=== PATIENT | female | born 1995 | race American Indian/Alaskan Native ===

== ENCOUNTER 2016-09-24 12:16 | Emergency (ER) | payer OTHER ==
[2016-09-24] MEDS ORDERED: TYLENOL PO ONE (23:44)
--- NOTE | 2016-09-25 00:17 | Emergency Department Report ---
HPI - General Chief Complaint: Vaginal Bleeding Time Seen by Provider: 09/24/16 23:33 - HPI HPI: 21-year-old Afro-[place] female presents emergency Department with a one-week history of some intermittent vaginal bleeding and lower abdominal/pelvic cramping. The patient says she is about 6 weeks . Her last menstrual cycle was the reported 26. She went to a women's health clinic a week ago and was told that she is about 6 weeks based on her last menstrual cycle and says she is supposed to go back in 1 week for an ultrasound. She does not have an [employer] SIGN MECHANIC. She was given a prescription for vitamins but has not yet started taking them. She has not taken anything for symptoms prior to presentation. She denies any vaginal discharge, dysuria, back pain, fever, vomiting. No recent travel or sick contacts at home. ED Past Medical Hx - Past Medical History Previous Medical History?: No - Surgical History Past Surgical History?: No - Social History Smoking Status: Current Every Day Smoker - Medications Home Medications: Home Medications Medication Instructions Recorded Confirmed Last Taken Type Vit No.130/Iron/FA 1 each PO QDAY #30 tablet 09/25/16 Unknown Rx [ Tablet] ED Review of Systems ROS: Stated complaint: CRAMPING/BLEEDING, 6WKS Other details as noted in HPI Comment: All other systems reviewed and negative Constitutional: denies: chills, fever Eyes: denies: eye pain, eye discharge, vision change ENT: denies: ear pain, throat pain Respiratory: denies: cough, shortness of breath, wheezing Cardiovascular: denies: chest pain, palpitations Gastrointestinal: abdominal pain. denies: vomiting Genitourinary: other (vag bleeding). denies: urgency, dysuria, discharge Musculoskeletal: denies: back pain, joint swelling, arthralgia Skin: denies: rash, lesions Neurological: denies: headache, weakness, paresthesias Physical Exam - Physical Exam Vital Signs: Vital Signs 09/24/16 09/24/16 12:43 22:19 Temperature 99.2 F 98.6 F Pulse Rate 87 74 Respiratory 20 18 Rate Blood Pressure 132/64 122/88 O2 Sat by Pulse 100 100 Oximetry Physical Exam: GENERAL: The patient is well-developed well-nourished. HEENT: Normocephalic. Atraumatic. Extraocular motions are intact. Patient has moist mucous membranes. Pupils equal reactive to light bilaterally. NECK: Supple. Trachea is midline. CHEST/LUNGS: Clear to auscultation. There is no respiratory distress noted. HEART/CARDIOVASCULAR: Regular. There is no tachycardia. There is no gallop rub or murmur. ABDOMEN: Abdomen is soft. Mild tenderness to palpation to the lower quadrants of the abdomen. No guarding rebound tenderness. Patient has normal bowel sounds. There is no abdominal distention. SKIN: Skin is warm and dry. NEURO: The patient is awake, alert, and oriented. The patient is cooperative. The patient has no focal neurologic deficits. The patient has normal speech. MUSCULOSKELETAL: There is no tenderness or deformity. There is no limitation range of motion. There is no evidence of acute injury. ED Course Vital Signs 09/24/16 09/24/16 12:43 22:19 Temperature 99.2 F 98.6 F Pulse Rate 87 74 Respiratory 20 18 Rate Blood Pressure 132/64 122/88 O2 Sat by Pulse 100 100 Oximetry - Consultations Consultation #1: I spoke with the NE[employer] SIGN MECHANIC on-call, Dr. Rodriguez, regarding the patient's presentation and ultrasound findings that show the possibility of ectopic . The ultrasound mostly does not confirm an injury in and does not completely exclude an ectopic. Dr. Rodriguez is aware of the ultrasound , labs, physical exam and suggests that the patient follow up in her office this afternoon, today, at 1:30 PM in the [facility]. 09/25/16 02:29 ED Medical Decision Making - Lab Data Result diagrams: 09/25/16 00:09 09/25/16 00:09 - Radiology Data Radiology results: report reviewed Transvaginal/ ultrasound shows a possible small gestational sac in the endometrial canal versus a pseudo-gestational sac. 4 mm correlates with an estimated gestational age of 5 weeks and 1 day. Nonspecific echogenic area adjacent to the right ovary. An intrauterine has not been confirmed an ectopic has not been excluded. - Medical Decision Making This is a 21-year-old female presents to the emergency department with a one- week history of some vaginal bleeding and lower abdominal/pelvic cramping or discomfort. Patient found out she was about one week ago with a positive urine test and last menstrual cycle estimation. Patient had labs today that show a leukocytosis of about 16,000 and a beta hCG of 4850. There is no urinary tract infection. Patient has a stable hemoglobin at 12. Physical exam the patient has some mild tenderness to palpation to the lower abdomen and/or pelvic but she does not have any guarding, rebound tenderness, peritoneal signs and she does not appear to have a toxic or rigid abdomen. Vital signs stable throughout her ED course. The patient's transvaginal/ ultrasound shows a possible small gestational sac or pseudo-gestational sac in the uterus that is about 4 mm and would correlate with a age of about 5 weeks. There is also a nonspecific echogenic finding to the right ovary. This basically says that an intrauterine cannot be confirmed and an ectopic cannot be excluded. It is still also possible that the patient is in the midst of a miscarriage. I spoke with the NEON SIGN MECHANIC on-call, Dr. Rodriguez, who is aware of the ultrasound findings and the multiple possibilities of this current . The patient has been set up to see Dr. Rodriguez's OB/ RIB STIFFENER AND HEEL DIPPER service today at her [place] office at 1:30 PM. I spoke in great detail with the patient regarding the multiple different possibilities of her current status including intrauterine , ectopic, and miscarriage. She understands the need to follow-up with the [facility] SIGN MECHANIC service today at 1:30 PM but also knows that she can return to the emergency department if she has any worsening of her symptoms or any acute distress and needs reevaluation. I wrote for the patient have vitamins as well. She understands that until the is confirmed or excluded that she should only take Tylenol for discomfort, every 4 hours as needed, using weight-based dosing. - Differential Diagnosis , threatened miscarrai, ectopic, spontaneous miscarriage, fibroids Critical Care Time: No Critical care attestation.: If time is entered above; I have spent that time in minutes in the direct care of this critically ill patient, excluding procedure time. ED Disposition Clinical Impression: Vaginal bleeding Qualifiers: Weeks of gestation: less than 8 weeks Qualified Code(s): Z3A.01 - Less than 8 weeks gestation of Abdominal pain Qualifiers: Abdominal location: lower abdomen, unspecified Qualified Code(s): R10.30 - Lower abdominal pain, unspecified Disposition: DISCHARGED TO HOME OR SELFCARE Is pt being admited?: No Condition: Stable Instructions: (ED), Threatened Miscarriage (ED), Ectopic ( ED) Additional Instructions: As we discussed in the emergency department this evening, you have signs of on your ultrasound and on your lab work. However at this time we are unable to completely confirm an intrauterine or completely rule out an ectopic or miscarriage. You need to follow-up with the [facility] SIGN MECHANIC service, the office of Dr. Rodriguez, today at 1:30 PM without fail. If your symptoms worsen or if you have any acute distress, return to the emergency department for further evaluation. Prescriptions: Vit No.130/Iron/FA [ Tablet] 1 each PO QDAY #30 tablet Referrals: CAMILO RODRIGUEZ MD [Staff Physician] - 09/25/16 1:30 pm Time of Disposition: 02:23
[2016-09-25 00:53] LABS: Basophils % (Auto) 0.5 % (0.0-1.8); Eosinophils % (Auto) 2.1 % (0.0-4.3); Hematocrit 37.8 % (30.3-42.9); Hemoglobin 12.3 gm/dl (10.1-14.3); Mean Corpuscular HGB Conc 33 % (30-34); Mean Corpuscular Hemoglobin 30 pg (28-32); Mean Corpuscular Volume 93 fl (79-97); Platelet Count 262 K/mm3 (140-440); Red Blood Count 4.05 M/mm3 (3.65-5.03); Red Cell Distribution Width 13.1 % (13.2-15.2); White Blood Count 15.9 K/mm3 (4.5-11.0)
[2016-09-25 00:57] LABS: Anion Gap 16 mmol/L; BUN/Creatinine Ratio 6.66; Blood Urea Nitrogen 4 mg/dL (7-17); Calcium 8.5 mg/dL (8.4-10.2); Carbon Dioxide 24 mmol/L (22-30); Glucose 84 mg/dL (65-100); Potassium 4.1 mmol/L (3.6-5.0); Sodium 139 mmol/L (137-145)
--- NOTE | 2016-09-25 01:53 | Ultrasound Report ---
FINAL REPORT EXAM: US OB \T\lt; = 14 WEEKS FETUS HISTORY: vag bleeding, preg TECHNIQUE: Real-time sonography was performed of the gravid uterus transabdominally and images are submitted for interpretation. PRIORS: None. FINDINGS: There is a small sac in the endometrial canal rounded shape and measuring 4 millimeters. pole is not identified. The endometrium is thickened at 2.3 cm. The left ovary appears normal measuring 2.3 x 1.5 x 1.9 cm. The right ovary appears enlarged and has not echogenic area along lateral margin the right ovary measures 2.8 x 2.3 x 1.9 cm. Echogenic area measures 3.0 x 1.7 cm. There is a small amount of free pelvic fluid. IMPRESSION: 1. Possible small gestational sac in the endometrial canal versus pseudo gestational sac. 4 millimeters correlates with a estimated gestational age of 5 weeks 1 day. 2. Nonspecific echogenic area adjacent to the right ovary. An intrauterine has not been confirmed and ectopic has not been excluded.
--- NOTE | 2016-09-25 02:08 | Ultrasound Report ---
FINAL REPORT EXAM: US OB TRANSVAGINAL HISTORY: vag bleeding, preg TECHNIQUE: Real-time sonography was performed of the pelvis endovaginally. Images are submitted for interpretation. PRIORS: None. FINDINGS: There is a small sac in the endometrial canal, rounded in shape and measuring 4 millimeters. A pole is not identified. The endometrium is thickened at 2.3 cm. The left ovary appears normal measuring 2.3 x 1.5 x 1.9 cm. The right ovary appears enlarged and has an echogenic area along lateral margin. The right ovary measures 2.8 x 2.3 x 1.9 cm. The echogenic area measures 3.0 x 1.7 cm. There is a small amount of free pelvic fluid. IMPRESSION: 1. Possible small gestational sac in the endometrial canal versus pseudo gestational sac. 4 millimeters correlates with an estimated gestational age of 5 weeks 1 day. 2. Nonspecific echogenic area adjacent to the right ovary. An intrauterine has not been confirmed and ectopic has not been excluded. I gave a verbal report by phone to Dr. Kaufman at 1:53 a.m. eastern daylight time.
[2016-09-25 02:09] LABS: Bacteria,Urine 1+ /HPF (Negative); Bilirubin,Urine NEG (Negative); Blood,Urine MOD (Negative); Ketones,Urine TR mg/dL (Negative); Leukocyte Esterase,Urine NEG (Negative); Mucus,Urine 3+ /HPF; Nitrite,Urine NEG (Negative); Protein,Urine <15 mg/dL mg/dL (Negative); Urobilinogen,Urine < 2.0 mg/dL (<2.0)
[2016-09-25 03:13] VITALS: BP 120/78
== END 2016-09-25 02:45 | disposition home or self-care (01) ==
LOC: ED 12:16
DX: O46.91 Antepartum hemorrhage, unspecified, first trimester (principal); R10.30 Lower abdominal pain, unspecified; Z3A.01 Less than 8 weeks gestation of pregnancy; F17.200 Nicotine dependence, unspecified, uncomplicated
CPT/HCPCS: 36415; 76801; 76817; 80048; 81001; 84702; 85025; 86900; 86901

== ENCOUNTER 2016-09-25 09:35 | Inpatient (IN) | payer OTHER ==
[2016-09-25 11:11] LABS: Basophils % (Auto) 0.7 % (0.0-1.8); Eosinophils % (Auto) 2.3 % (0.0-4.3); Hematocrit 37.3 % (30.3-42.9); Hemoglobin 12.2 gm/dl (10.1-14.3); Mean Corpuscular HGB Conc 33 % (30-34); Mean Corpuscular Hemoglobin 30 pg (28-32); Mean Corpuscular Volume 93 fl (79-97); Platelet Count 268 K/mm3 (140-440); Red Blood Count 4.02 M/mm3 (3.65-5.03); Red Cell Distribution Width 13.1 % (13.2-15.2); White Blood Count 11.9 K/mm3 (4.5-11.0)
[2016-09-25 11:22] LABS: Anion Gap 16 mmol/L; BUN/Creatinine Ratio 5.71; Blood Urea Nitrogen 4 mg/dL (7-17); Calcium 8.7 mg/dL (8.4-10.2); Carbon Dioxide 22 mmol/L (22-30); Glucose 89 mg/dL (65-100); Potassium 3.8 mmol/L (3.6-5.0); Sodium 138 mmol/L (137-145)
[2016-09-25] MEDS ORDERED: TYLENOL PO ONE (12:08)
--- NOTE | 2016-09-25 12:13 | Emergency Department Report ---
Entered by QUIRINO ABBASI, acting as scribe for VINAYAK SHARP NP. Chief Complaint: Vaginal Bleeding Stated Complaint: ABD PAIN/VAG DISCHARGE Time Seen by Provider: 09/25/16 10:35 - HPI History of Present Illness: Patient, who is , presents the ED c/o vaginal bleeding just discharged at 03:30. During her visit, providers could not rule out an ectopic . She was advised to go see an CRUSHER SCREEN REPAIRER., but returned because vaginal bleeding worsened. - ROS Review of Systems: All systems are negative unless stated in HPI above. - Exam Vital Signs: Vital Signs 09/25/16 10:14 Temperature 98.5 F Pulse Rate 64 Blood Pressure 107/62 O2 Sat by Pulse 100 Oximetry Physical Exam: General: alert, Oriented x 3 Cardiovascular: moderately tachycardic MSE screening note: Focused history and physical exam performed. Due to findings the following was ordered: CAN NOT RO ECTOPIC LAST PM ILL APPEARING MD NOTIFIED. ED Medical Decision Making - Lab Data Result diagrams: 09/25/16 10:50 09/25/16 10:50 - Medical Decision Making Patient was seen by provider in the triage area. Labs have been ordered. ED Disposition for MSE Condition: Stable Referrals: PRIMARY CARE,MD [Primary Care Provider] - 3-5 Days This documentation as recorded by the scribe,QUIRINO ABBASI,accurately reflects the service I personally performed and the decisions made by HAYDE turner CATHLEEN A, NP.
[2016-09-25] MEDS ORDERED: MORPHINE IM ONE (12:47)
[2016-09-25] MEDS ORDERED: ZOFRAN ODT PO ONE (12:48)
[2016-09-25] MEDS ORDERED: MORPHINE IV ONE ×4 (12:50→17:49)
[2016-09-25] MEDS ORDERED: ZOFRAN IV ONE (12:50)
[2016-09-25] MEDS ORDERED: NACL 0.9% 1000 ML 1,000 ML IV ONE ×2 (13:26→19:17)
--- NOTE | 2016-09-25 13:42 | Emergency Department Report ---
<GLO NEWMAN - Last Filed: 09/25/16 21:25> ED Female HPI - General Chief complaint: Vaginal Bleeding Stated complaint: ABD PAIN/VAG DISCHARGE Time Seen by Provider: 09/25/16 12:40 - Related Data Previous Rx's Medication Instructions Recorded Last Taken Type Vit No.130/Iron/FA 1 each PO QDAY #30 tablet 09/25/16 Unknown Rx [ Tablet] Allergies Allergy/AdvReac Type Severity Reaction Status Date / Time No Known Allergies Allergy Verified 09/25/16 21:54 ED Review of Systems ROS: Stated complaint: ABD PAIN/VAG DISCHARGE Other details as noted in HPI ED Past Medical Hx - Medications Home Medications: Home Medications Medication Instructions Recorded Confirmed Last Taken Type Vit No.130/Iron/FA 1 each PO QDAY #30 tablet 09/25/16 09/26/16 Unknown Rx [ Tablet] ED Course Vital Signs 09/25/16 09/25/16 09/25/16 10:14 12:57 15:18 Temperature 98.5 F Pulse Rate 64 74 84 Respiratory 16 16 Rate Blood Pressure 107/62 Blood Pressure 113/71 100/63 [Right] O2 Sat by Pulse 100 100 100 Oximetry 09/25/16 09/25/16 18:08 21:47 Temperature 98 F 98.3 F Pulse Rate 105 H 75 Respiratory 16 16 Rate Blood Pressure Blood Pressure 95/58 93/59 [Right] O2 Sat by Pulse 100 98 Oximetry ED Medical Decision Making - Lab Data Result diagrams: 09/25/16 10:50 09/25/16 10:50 Critical care attestation.: If time is entered above; I have spent that time in minutes in the direct care of this critically ill patient, excluding procedure time. ED Disposition Clinical Impression: Bacterial vaginosis, Spontaneous , Vaginal bleeding Abdominal pain Qualifiers: Abdominal location: lower abdomen, unspecified Qualified Code(s): R10.30 - Lower abdominal pain, unspecified Disposition: OP ADMITTED IP TO THIS HOSP Condition: Stable <HIMANSHU PRASAD - Last Filed: 09/25/16 21:50> ED Course Vital Signs 09/25/16 09/25/16 09/25/16 10:14 12:57 15:18 Temperature 98.5 F Pulse Rate 64 74 84 Respiratory 16 16 Rate Blood Pressure 107/62 Blood Pressure 113/71 100/63 [Right] O2 Sat by Pulse 100 100 100 Oximetry 09/25/16 09/25/16 18:08 21:47 Temperature 98 F 98.3 F Pulse Rate 105 H 75 Respiratory 16 16 Rate Blood Pressure Blood Pressure 95/58 93/59 [Right] O2 Sat by Pulse 100 98 Oximetry Vital Signs 09/25/16 09/25/16 09/25/16 10:14 12:57 15:18 Temperature 98.5 F Pulse Rate 64 74 84 Respiratory 16 16 Rate Blood Pressure 107/62 Blood Pressure 113/71 100/63 [Right] O2 Sat by Pulse 100 100 100 Oximetry 09/25/16 09/25/16 18:08 21:47 Temperature 98 F 98.3 F Pulse Rate 105 H 75 Respiratory 16 16 Rate Blood Pressure Blood Pressure 95/58 93/59 [Right] O2 Sat by Pulse 100 98 Oximetry - Reevaluation(s) Reevaluation #3: 09/25/16 21:35 Dr. Glo Newman DOOR SLINGER here to evaluate patient. Decision was made by her to admit patient. ED Medical Decision Making - Lab Data Result diagrams: 09/25/16 10:50 09/25/16 10:50 - Medical Decision Making ED course: Patient to be admitted to DOOR SLINGER service. Patient with vaginal bleeding and abdominal pain. Dr. Newman saw patient in room. She still has abdominal pain and receiving IV fluid. ED Disposition Is pt being admited?: Yes Does the pt Need Aspirin: No <AVA VALDEZ - Last Filed: 09/26/16 09:29> ED Female HPI - General Source: patient, family Mode of arrival: Wheelchair Limitations: No Limitations - History of Present Illness Initial comments: PT states she was discharged from the hospital at 0300. PT states that she made an appointment with DOOR SLINGER but could not go due to her 1010 pain. PT states she was told this am that she could have an ectopic . PT states she is and has had vaginal bleeding. PT states the bleeding started on 09-09-16. PT states before the bleeding, she had some white discharge. PT denies vaginal itching or odor. MD Complaint: vaginal bleeding Onset/Timin -: Gradual, week(s) Location: suprapubic Radiation: suprapubic Severity: severe Severity scale (0 -10): 10 Quality: cramping, sharp Consistency: constant (x 1 week ) Improves with: none Worsens with: none Are you Now?: Yes Associated Symptoms: vaginal discharge, vaginal bleeding, abdominal pain - Related Data Sexually active: Yes ED Review of Systems Comment: All other systems reviewed and negative Constitutional: other (fatigue, can not sleep due to pain ). denies: fever Gastrointestinal: abdominal pain Genitourinary: as per HPI, discharge, abnormal menses ED Past Medical Hx - Past Medical History Previous Medical History?: No - Surgical History Past Surgical History?: No - Social History Smoking Status: Current Every Day Smoker Substance Use Type: None ED Physical Exam - General Limitations: No Limitations General appearance: alert, in no apparent distress - Head Head exam: Present: atraumatic, normocephalic, normal inspection - Eye Eye exam: Present: normal appearance. Absent: conjunctival injection - ENT ENT exam: Present: normal exam - Neck Neck exam: Present: normal inspection, full ROM. Absent: tenderness - Respiratory Respiratory exam: Present: normal lung sounds bilaterally. Absent: respiratory distress, wheezes - Cardiovascular Cardiovascular Exam: Present: regular rate, normal rhythm, normal heart sounds - GI/Abdominal GI/Abdominal exam: Present: soft, normal bowel sounds. Absent: tenderness - External exam: Present: normal external exam, other (female angle roll operator at bedside. ) Speculum exam: Present: vaginal bleeding Bi-manual exam: Present: other (cervix 1 cm dialated. ). Absent: cervical motion tendernes, adnexal tenderness, adnexal mass, uterine enlargement, uterine tenderness - Extremities Exam Extremities exam: Present: normal inspection, full ROM - Back Exam Back exam: Present: normal inspection, full ROM. Absent: CVA tenderness (R), CVA tenderness (L) - Neurological Exam Neurological exam: Present: alert, oriented X3 - Psychiatric Psychiatric exam: Present: normal affect, normal mood - Skin Skin exam: Present: warm, dry, intact ED Course - Reevaluation(s) Reevaluation #1: 09/25/16 13:45 PT aware of plan of care. Will control pain prior to pelvic exam. Reevaluation #2: 09/25/16 17:49 PT able to tolerate pelvic exam at this time. PT rates pain 7/10. pt aware of pelvic exam findings. 09/25/16 19:13 PT crying states her pain is not better. - Consultations Consultation #1: 09/25/16 19:21 DR Newman requesting repeat US. Will order. AYSE Lafleur to follow up results and re-paged Dr Newman with results. - Pulse Oximetry Interpretation Digit-Finger Initial Pulse Oximetry Readin Actions Taken: none ED Medical Decision Making - Lab Data Result diagrams: 09/26/16 07:20 09/25/16 10:50 Lab Results 09/25/16 09/25/16 09/25/16 Range/Units 10:50 10:50 10:50 WBC 11.9 H (4.5-11.0) K/mm3 RBC 4.02 (3.65-5.03) M/mm3 Hgb 12.2 (10.1-14.3) gm/dl Hct 37.3 (30.3-42.9) % MCV 93 (79-97) fl MCH 30 (28-32) pg MCHC 33 (30-34) % RDW 13.1 L (13.2-15.2) % Plt Count 268 (140-440) K/mm3 Lymph % (Auto) 18.9 (13.4-35.0) % [place] % (Auto) 6.9 (0.0-7.3) % Eos % (Auto) 2.3 (0.0-4.3) % Baso % (Auto) 0.7 (0.0-1.8) % Lymph # 2.3 (1.2-5.4) K/mm3 [place] # 0.8 (0.0-0.8) K/mm3 Eos # 0.3 (0.0-0.4) K/mm3 Baso # 0.1 (0.0-0.1) K/mm3 Seg Neutrophils % 71.2 H (40.0-70.0) % Seg Neutrophils # 8.5 H (1.8-7.7) K/mm3 Sodium 138 (137-145) mmol/L Potassium 3.8 (3.6-5.0) mmol/L Chloride 104.0 (98-107) mmol/L Carbon Dioxide 22 (22-30) mmol/L Anion Gap 16 mmol/L BUN 4 L (7-17) mg/dL Creatinine 0.7 (0.7-1.2) mg/dL Estimated GFR > 60 ml/min BUN/Creatinine Ratio 5.71 % Glucose 89 (65-100) mg/dL Calcium 8.7 (8.4-10.2) mg/dL HCG, Quant 2700 H (0-4) mIU/mL Blood Type Ord Rhogam Gestat Weeks WEEKS 09/25/16 Range/Units 10:50 WBC (4.5-11.0) K/mm3 RBC (3.65-5.03) M/mm3 Hgb (10.1-14.3) gm/dl Hct (30.3-42.9) % MCV (79-97) fl MCH (28-32) pg MCHC (30-34) % RDW (13.2-15.2) % Plt Count (140-440) K/mm3 Lymph % (Auto) (13.4-35.0) % [place] % (Auto) (0.0-7.3) % Eos % (Auto) (0.0-4.3) % Baso % (Auto) (0.0-1.8) % Lymph # (1.2-5.4) K/mm3 [place] # (0.0-0.8) K/mm3 Eos # (0.0-0.4) K/mm3 Baso # (0.0-0.1) K/mm3 Seg Neutrophils % (40.0-70.0) % Seg Neutrophils # (1.8-7.7) K/mm3 Sodium (137-145) mmol/L Potassium (3.6-5.0) mmol/L Chloride (98-107) mmol/L Carbon Dioxide (22-30) mmol/L Anion Gap mmol/L BUN (7-17) mg/dL Creatinine (0.7-1.2) mg/dL Estimated GFR ml/min BUN/Creatinine Ratio % Glucose (65-100) mg/dL Calcium (8.4-10.2) mg/dL HCG, Quant (0-4) mIU/mL Blood Type A POSITIVE Ord Rhogam Gestat Weeks Rh pos WEEKS - Differential Diagnosis threatend ab, spontanous ab Critical Care Time: No ED Disposition Is pt being admited?: No Does the pt Need Aspirin: No
--- NOTE | 2016-09-25 21:27 | Consultation ---
History of Present Illness Consult date: 09/25/16 Reason for consult: early problem History of present illness: This is a 21 yo G 1 P 0 at 6 weeks came in on yesterday for vaginal bleeding and pain. She was evaluated noting a quant of 4800 gestational sac in uterus. She was discharged to f/u with Dr. Rodriguez today at 1p but never went and came back to ER with pain only being discharged with tylenol. I was consulted today 714p and requested a repeat US. She has had 10 morphine and remains tearful with bleeding without clots. her partner stated that she got in tub and tissue particles came out in the tub. Her quant was repeated and noted to be 2700. Awaiting for US findings. I will admit for pain control and close monitor with repeat quant and cbc ( to assure hemodynamic stability) in am. US shows suspected non viable with gestational sac in lower uterine segment. Past History Past Medical History: no pertinent history Past Surgical History: no surgical history Family/Genetic History: none Social history: no significant social history, single Medications and Allergies Allergies Allergy/AdvReac Type Severity Reaction Status Date / Time No Known Allergies Allergy Verified 09/25/16 21:54 Home Medications Medication Instructions Recorded Confirmed Last Taken Type Vit No.130/Iron/FA 1 each PO QDAY #30 tablet 09/25/16 Unknown Rx [ Tablet] Review of Systems Constitutional: no fever, no chills, no sweats, no anorexia, no weakness, no malaise Eyes: deferred Ears, nose, mouth and throat: deferred Cardiovascular: no chest pain, no palpitations, no rapid/irregular heart beat, no syncope, no lightheadedness, no dyspnea on exertion Respiratory: no shortness of breath Breasts: deferred Gastrointestinal: abdominal pain, no nausea, no vomiting, no diarrhea, no constipation Genitourinary: normal appearance, vaginal bleeding, pelvic pain Rectal Exam: deferred Integumentary: deferred - Vital Signs Vital signs: Vital Signs Temp Pulse BP Pulse Ox 98.5 F 64 107/62 100 09/25/16 10:14 09/25/16 10:14 09/25/16 10:14 09/25/16 10:14 Temp Pulse Resp BP Pulse Ox 98 F 105 H 16 95/58 100 09/25/16 18:08 09/25/16 18:08 09/25/16 18:08 09/25/16 18:08 09/25/16 18:08 - Physical Exam Breasts: Positive: deferred Cardiovascular: Regular rate, Normal S1 Lungs: Positive: Clear to auscultation, Normal air movement Abdomen: Positive: normal appearance, soft, normal bowel sounds. Negative: distention, tenderness, guarding Genitourinary (Female): Positive: normal external genitalia, normal perenium Vulva: both: normal Vagina: Negative: ulceration Uterus: Positive: normal size Anus/Rectum: Positive: normal perianal skin Extremities: Positive: normal Deep Tendon Reflex Grade: Normal +2 Results Result Diagrams: 09/25/16 10:50 09/25/16 10:50 Abnormal lab results 09/25/16 09/25/16 09/25/16 Range/Units 10:50 10:50 10:50 WBC 11.9 H (4.5-11.0) K/mm3 RDW 13.1 L (13.2-15.2) % Seg Neutrophils % 71.2 H (40.0-70.0) % Seg Neutrophils # 8.5 H (1.8-7.7) K/mm3 BUN 4 L (7-17) mg/dL HCG, Quant 2700 H (0-4) mIU/mL All other labs normal. Assessment and Plan A/P HD#1 abdominal pain, early , vaginal bleeding 1. Admit for pain control and close observation 2. IVF 3. repeat bhcg and cbc in am 4. NPO 5. type and screen 6. stable h/h 7. no s/sx of acute abdomen currently 8. reviewed US findings with radiology - doubt ectopic no flow to questionable echogenic area on the ovary and gestationsal sac progressing lower to the lower uterine segment
--- NOTE | 2016-09-25 21:40 | Ultrasound Report ---
FINAL REPORT PROCEDURE: US OB \T\lt; = 14 WEEKS FETUS 19:56 p.m. TECHNIQUE: Real-time transabdominal sonography of the uterus, placenta, amniotic fluid, adnexa, and fetus was performed with image documentation. Measurements were obtained to determine age/size. M-mode Doppler was used to document heartbeat. CPT 00229 HISTORY: , bleeding COMPARISON: 09/25/2016 00:55 a.m. FINDINGS: Uterus 8.4 centimeters Endometrial stripe 10 millimeters CRL: No definite embryonic pole seen at this time. Yolk Sac: Not seen at this time Embryonic Cardiac Activity: Not seen at this time Gestational Sac: 3 millimeter empty mildly complex gestational sac consistent with 5 week 1 day age suspected in the lower uterine segment area Amniotic fluid: Normal. Cervix: Normal. Right Ovary: 4.1 x 2.3 centimeters with normal flow. 1.2 centimeter complex hypoechoic lesion seen right adnexa without significant color-flow. Left Ovary: 3.3 x 2.1 centimeters with normal flow. Estimated delivery date: 05/27/2017 Free fluid: Minimal free fluid. IMPRESSION: Suspect single small abnormal gestational sac in the lower uterine segment No yolk sac or pole seen No heart tones. Minimal free fluid. Complex mass right ovary indeterminate nonspecific No ovarian torsion Consider possible spontaneous in progress Followup is advised
[2016-09-25] MEDS ORDERED: ALUM-MAG HYDROX-SIMETH 200-200-20MG/5ML PO PRN (21:45)
[2016-09-25] MEDS ORDERED: COLACE PO PRN (21:45)
[2016-09-25] MEDS ORDERED: TYLENOL PO PRN (21:45)
[2016-09-25] MEDS ORDERED: SENOKOT S PO PRN (21:45)
[2016-09-25] MEDS ORDERED: MILK OF MAGNESIA PO PRN (21:45)
[2016-09-25] MEDS ORDERED: MYLICON PO PRN (21:45)
--- NOTE | 2016-09-25 21:45 | Ultrasound Report ---
FINAL REPORT PROCEDURE: US OB TRANSVAGINAL 19:59 p.m. TECHNIQUE: Real-time transvaginal sonography of the uterus, placenta, amniotic fluid, adnexa, and fetus was performed with image documentation. Measurements were obtained to determine age/size. M-mode Doppler was used to document heartbeat. CPT 94603 HISTORY: , bleeding COMPARISON: 09/25/2016 00:55 a.m. FINDINGS: Uterus 8.4 centimeters Endometrial stripe 10 millimeters CRL: No embryonic pole seen at this time Yolk Sac: Not seen at this time Embryonic Cardiac Activity: Not seen at this time Gestational Sac: Suspect top-normal mildly complex small empty gestational sac lower uterine segment measuring 3 millimeters suggesting 5 week 1 day age Right Ovary: 4.1 x 2.3 centimeters with normal flow. Persistent 1.2 centimeter hypoechoic mildly complex mass in the right ovary of indeterminate etiology Left Ovary: 3.3 x 2.1 centimeters with normal flow Estimated delivery date: 05/27/2017 Comment: Minimal free fluid. Consider spontaneous in progress however viability of potential gestational sac is not indeterminate at this juncture. A viable IUP has not been established. Followup is advised with regards to viability or evaluation of progression of demise IMPRESSION: Suspect 5 week 1 day empty mildly complex gestational sac lower uterine segment No definitive embryonic pole or heart tones Minimal free fluid Followup is advised
[2016-09-25] MEDS ORDERED: TORADOL IV ONE (21:51)
[2016-09-25] MEDS ORDERED: MORPHINE ONE (23:09)
[2016-09-25] MEDS: MORPHINE IV PRN (23:30)
[2016-09-26] MEDS: LACTATED RINGERS 1,000 ML IV SCH ×2 (00:50→11:48)
[2016-09-26] MEDS ORDERED: TORADOL IV PRN (01:32)
[2016-09-26] MEDS: MORPHINE IV PRN (05:25)
[2016-09-26 07:50] LABS: Basophils % (Auto) 0.8 % (0.0-1.8); Eosinophils % (Auto) 3.3 % (0.0-4.3); Hematocrit 33.3 % (30.3-42.9); Hemoglobin 10.9 gm/dl (10.1-14.3); Mean Corpuscular HGB Conc 33 % (30-34); Mean Corpuscular Hemoglobin 30 pg (28-32); Mean Corpuscular Volume 92 fl (79-97); Platelet Count 237 K/mm3 (140-440); Red Blood Count 3.61 M/mm3 (3.65-5.03); Red Cell Distribution Width 13.1 % (13.2-15.2); White Blood Count 11.5 K/mm3 (4.5-11.0)
--- NOTE | 2016-09-26 09:01 | Progress Note ---
Assessment and Plan A/P HD#2 abdominal pain, early , vaginal bleeding, missed 1. continue pain control and close observation 2. IVF 3. await BHCG h/h stable 4. NPO 5. rh+ no rhogam indicated 6. consider cytiotec vs surgical mgt with D and c. -at this time patient declines surgical option Subjective - Subjective Date of service: 09/26/16 Principal diagnosis: missed , abdominal pain, vaginal bleeding Patient reports: voiding normally, pain well controlled (only with morphine and toradol) Objective - Vital Signs Latest vital signs: Vital Signs Temp Pulse Pulse Resp BP BP Pulse Ox 09/26/16 05:25 18 09/26/16 04:30 98.3 F 74 18 84/51 09/26/16 00:15 98.1 F 61 18 92/49 09/25/16 21:47 98.3 F 75 16 93/59 98 Intake and Output 09/25/16 09/26/16 09/26/16 22:59 06:59 14:59 Intake Total 563 Output Total 300 Balance 263 Intake: IV 563 Lactated Ringers 1,000 ml 563 @ 125 mls/hr IV DIRECT BOBBY Rx#:[id number] Output: Urine 300 Void 300 Other: Total, Output Amount 300 Weight 82.55 kg - Exam Breasts: Present: deferred Cardiovascular: Present: Regular rate, Normal S1 Lungs: Present: Clear to auscultation, Normal air movement Abdomen: Present: normal appearance, soft, tenderness, normal bowel sounds. Absent: distention, guarding Vulva: both: normal Uterus: Present: normal Extremities: Present: normal Deep Tendon Reflex Grade: Normal +2 - Labs Labs: Abnormal lab results 09/26/16 09/26/16 Range/Units 07:20 07:20 WBC 11.5 H (4.5-11.0) K/mm3 RBC 3.61 L (3.65-5.03) M/mm3 RDW 13.1 L (13.2-15.2) % Pender % (Auto) 7.4 H (0.0-7.3) % Pender # 0.9 H (0.0-0.8) K/mm3 HCG, Quant 1200 H (0-4) mIU/mL
--- NOTE | 2016-09-26 09:54 | Admit Criteria Form ---
Admission Criteria Documentation: OBSTETRIC AND GYNECOLOGIC DISEASE GRG Clinical Indications for Admission to Inpatient Care (Place 'X' for any and all applicable criteria): Hospital admission is needed for appropriate care of the patient because of 1 or more of the following (1)(2)(3): [ ]I. Hemodynamic instability, as indicated by 1 or more of the following (1)( 2)(3)(4)(5): [ ]a) Vital signs or other findings not as expected for chronic patient condition or baseline [ ]b) Instability indicated by 1 or more of the following: [ ]i) Hypotension [ ]ii) Symptomatic tachycardia unresponsive to treatment (eg, analgesia, fluids, sedation as indicated) [ ]iii) Inadequate perfusion indicated by 1 or more of the following: [ ]A. Lactic acidosis (greater than 2 mmol/ L) [ ]B. New abnormal capillary refill ( greater than 3 seconds) [ ]C. Reduced urine output [ ]D. New altered mental status [ ]iv) Orthostatic vital sign changes unresponsive to treatment (eg, fluids) [ ]v) Multiple IV fluid boluses required to maintain adequate blood pressure or perfusion [ ]vi) IV inotropic or vasopressor medication required to maintain adequate blood pressure or perfusion [ ]II. Obstetric infection requiring hospitalization indicated by 1 or more of the following(13)(14): [ ]a) Chorioamnionitis [ ]b) Endometritis (except mild endometritis) [ ]c) Pelvic abscess [ ]d) Peritonitis [ ]e) Septic pelvic thrombophlebitis [ ]III. Amniotic fluid or pulmonary embolism(4)(5)(6) [ ]IV. Suspected peritonitis or ectopic requiring monitoring beyond scope of 24 hours or observation care(7)(8) [ ]V. compromise requiring hospitalization indicated by ALL of the following(9)(10): [ ]a) compromise indicated by 1 or more of the following(11): [ ]i) Abnormal heart rate monitoring [ ]ii) Abnormal contraction stress test [ ]iii) Abnormal biophysical profile [ ]iv) Abnormal Doppler flow in vessels (ie, Doppler velocimetry) (12) [ ]b) Persistence of compromise indicators during evaluation and observation monitoring [ ]. Ovarian hyperstimulation syndrome requiring hospitalization[A] indicated by ALL of the following(15): [ ]a) Recent ovarian stimulation with gonadotropins, or evidence on ultrasound of spontaneous emergence of large number of ovarian follicles [ ]b) Evidence of severe ovarian hyperstimulation syndrome indicated by 1 or more of the following: [ ]i) Abdominal pain unresponsive to oral therapy [ ]ii) Acute respiratory distress syndrome [ ]iii) Electrolyte imbalance ( eg, hyponatremia, hyperkalemia) [ ]iv) Elevated liver enzymes [ ]v) Evidence of thromboembolism [ ]vi) Hemoconcentration (hematocrit greater than 45 % (0.45)) [ ]vii) Inability to maintain oral intake adequate to prevent hemoconcentration [ ]viii) Marked hypotension from baseline (eg, SBP 20 mmHg below patients usual pressure) [ ]ix) Oliguria or anuria [ ]x) Ovarian torsion [ ]xi) Pleural or pericardial effusion on x-ray or echocardiogram [ ]xii) Rapid increase in serum creatinine to greater than 1.2 mg/dL (106 micromoles/L) or creatinine clearance less than 50 mL/min/1.73m2 (0.84 mL/ sec/1.73m2) [ ]xiii) Ruptured ovarian cyst with hemorrhage [ ]xiv) Severe abdominal pain or peritoneal signs [ ]xv) Tense ascites that cannot be managed with paracentesis in outpatient setting [ ]VII.Pelvic infection requiring hospitalization indicated by 1 or more of the following (16): [ ]a) Outpatient treatment has failed or is not appropriate (eg, inpatient monitoring required) [ ]b) Pelvic abscess [ ]c) Surgical emergency cannot be excluded (eg, rigid abdomen) [ ]d) Vomiting precluding outpatient and observation care management [X]VIII. loss complications requiring inpatient medical treatment indicated by 1 or more of the following (4)(7)(9): [ ]a) Fever [ ]b) Peritonitis [ ]c) Sepsis [X]d) Severe abdominal pain [ ]IX. or patient requiring monitoring for severe heart failure, pulmonary disease, or other comorbid condition (eg, peripartum cardiomyopathy) (4)(17) [ ]X. patient with rupture of membranes requiring hospitalization indicated by ANY ONE of the following: [ ]a) Chorioamnionitis, cloudy amniotic fluid, or other evidence of infection [ ]b) compromise or other need for monitoring (11) [ ]c) Gestation longer than 23 weeks and ANY ONE of the following: [ ]i) Abnormal (noncephalic) presentation [ ]ii) Inadequate home environment (eg, home too far from hospital, unable to rapidly return to hospital) [ ]d) Temperature greater than 100.4 degrees F (38 degrees C)( oral) [ ]e) Threatened labor requiring monitoring beyond scope (eg, over 24 hours) of observation Care [ ] XI. complications, including severe lacerations, infections, or retained placenta (19) [ ] XII.Uterine bleeding with high-risk features indicated by ANY ONE of the following (4): [ ]a) Active major hemorrhage (eg, hemorrhage) [ ]b) Coagulopathy with active bleeding [ ]c) Gestational trophoblastic disease (eg, molar ) (20 ) [ ]d) (longer than 23 weeks) and ANY ONE of the following: [ ]i) Pain [ ]ii) Placental abruption, known or suspected [ ]iii) Placenta accrete, known or suspected(21) [ ]iv) Placenta previa, known or suspected [ ]v) Vasa previa [ ]e) Severe anemia [ ]XIII. Obstetric or Gynecologic Disease, condition or symptom for which ANY ONE of the following: [ ]a) Emergency and observation care have failed or are not considered appropriate ( Also use General Criteria: Observation Care Criteria as appropriate) [ ]b) Presence of a General Admission Criteria or Pediatric General Admission Criteria The original [facility] [employer] content created by [facility] has been revised. The portions of the content which have been revised are identified through the use of italic text or in bold, and [facility] has neither reviewed nor approved the modified material.All other unmodified content is copyright [facility]. Please see references footnoted in the original [facility] edition 2016 Admission Criteria Met: Yes
[2016-09-26] MEDS ORDERED: PRENATAL VITAMIN PO SCH (10:00)
[2016-09-26] MEDS ORDERED: CYTOTEC PO ONE (12:00)
[2016-09-26] MEDS: PERCOCET 5/325 PO PRN ×3 (12:27→20:04)
[2016-09-27] MEDS: PERCOCET 5/325 PO PRN ×2 (11:35→23:00)
--- NOTE | 2016-09-27 16:38 | Ultrasound Report ---
Transvaginal OB ultrasound. History: Vaginal bleeding with decreasing serum hCG. Findings: Comparison is made to study performed on September 25. There is no evidence of a gestational sac on today's study. The endometrial echo is thickened at 1.4 cm. The 1.4 cm complex cyst in the right ovary is unchanged. Impression: No evidence of IUP on today's study. The gestational sac seen on September 25 is no longer identified.
--- NOTE | 2016-09-27 17:00 | Progress Note ---
Assessment and Plan A/P HD#3 abdominal pain, early , vaginal bleeding, missed 1. switched to pain meds po tolerateing 2. resolution of previous gestational sac 3. quant decreased to 715 from initiation of 4800 4. consult to mental health for outburst, inappropriate actions and hx of mental health issues and admissions 5. rh+ no rhogam indicated 6.d/c home after mental health eval and possible treatment 7. to f/u in clinic 1 week after discharge Subjective - Subjective Date of service: 09/27/16 Principal diagnosis: missed , abdominal pain, vaginal bleeding Patient reports: appetite normal, voiding normally, pain well controlled, ambulating normally Objective - Vital Signs Latest vital signs: Vital Signs Temp Pulse Resp BP 09/27/16 11:40 98.5 F 68 18 96/50 09/27/16 08:10 98.4 F 66 18 92/60 09/27/16 04:25 98.3 F 69 18 97/42 09/27/16 00:15 98.6 F 67 18 95/56 09/26/16 20:35 98.3 F 74 18 111/70 09/26/16 20:04 18 09/26/16 17:00 98.0 F 62 18 96/62 Intake and Output 09/27/16 09/27/16 09/27/16 06:59 14:59 22:59 Intake Total 360 Output Total 300 650 Balance -300 -290 Intake: Oral 120 Intake, Free Water 240 Output: Urine 300 650 Void 300 650 Other: Total, Intake Amount 120 Total, Output Amount 300 300 Voiding Method Toilet # Voids Void 1 - Exam Breasts: Present: deferred Cardiovascular: Present: Regular rate, Normal S1, Normal S2 Lungs: Present: Clear to auscultation, Normal air movement Abdomen: Present: normal appearance, soft, normal bowel sounds Vulva: both: normal Uterus: Present: normal, firm Extremities: Present: normal Deep Tendon Reflex Grade: Normal +2 - Labs Labs: Abnormal lab results 09/27/16 Range/Units 07:30 HCG, Quant 715.3 H (0-4) mIU/mL
[2016-09-28] MEDS: PERCOCET 5/325 PO PRN (09:13)
--- NOTE | 2016-09-28 09:27 | Progress Note ---
Assessment and Plan A/P HD#4 abdominal pain, early , vaginal bleeding, missed , mental 1. tolerating pain with po meds 2. resolution of previous gestational sac 3. quant steadily decreasing 4. awaiting f/u with psych with medications for depression 5. rh+ no rhogam indicated 6.f/c home today 7. to f/u in clinic 1 week after discharge Subjective - Subjective Date of service: 09/28/16 Principal diagnosis: missed , abdominal pain, vaginal bleeding Patient reports: appetite normal, voiding normally, pain well controlled, ambulating normally Objective - Vital Signs Latest vital signs: Vital Signs Temp Pulse Resp BP 09/28/16 09:13 20 09/28/16 04:25 98.4 F 78 18 102/53 09/28/16 00:00 98.6 F 86 18 104/50 09/27/16 20:00 98.2 F 83 18 108/60 09/27/16 16:53 98.5 F 64 18 94/58 09/27/16 11:40 98.5 F 68 18 96/50 Intake and Output 09/27/16 09/28/16 09/28/16 22:59 06:59 14:59 Intake Total 240 360 Balance 240 360 Intake: Oral 240 360 Other: Total, Intake Amount 240 120 # Voids Void 1 1 - Exam Breasts: Present: deferred Cardiovascular: Present: Regular rate, Normal S1, Normal S2 Lungs: Present: Clear to auscultation, Normal air movement Abdomen: Present: normal appearance, soft, normal bowel sounds Vulva: both: normal Uterus: Present: normal, firm Extremities: Present: normal Deep Tendon Reflex Grade: Normal +2 - Labs Labs: Abnormal lab results 09/28/16 Range/Units 07:55 HCG, Quant 449.3 H (0-4) mIU/mL
--- NOTE | 2016-09-28 09:28 | Discharge Summary ---
Providers - Providers Date of Admission: 09/25/16 21:45 Date of discharge: 09/28/16 Attending physician: JUDY FERNANDEZ MD 09/27/16 15:42 Consult to Mental Health [CONS] Routine Reason For Exam: history of mental health hospitalization Place consult to:: mental health Notified:: yes Phone number called:: [phone] Was contact made?: No Time called:: 15:47 Primary care physician: [facility] Hospitalization Reason for admission: other (pain, abdominal pain , ) Condition at discharge: Good Disposition: DISCHARGED TO HOME OR SELFCARE Plan - Discharge Medications Prescriptions: Ibuprofen [Motrin] 600 mg PO Q8H PRN #30 tablet PRN Reason: Pain oxyCODONE /ACETAMINOPHEN [Percocet 5/325] 1 tab PO Q6HR PRN #30 tablet PRN Reason: Pain - Provider Discharge Summary Activity: no sex for 6 weeks Diet: routine Additional instructions: [] Smoking cessation referral if applicable(refer to patient education folder for contact #) [] Refer to [facility]'s [facility] Booklet Call your doctor immediately for: * Fever > 100.5 * Heavy vaginal bleeding ( >1 pad per hour) * Severe persistent headache * Shortness of breath * Reddened, hot, painful area to leg or breast * Drainage or odor from incision. * Keep incision clean and dry at all times and follow doctor's instructions regarding bathing/showering - Follow up plan Follow up: PRIMARY CAREMD [Primary Care Provider] - 7 Days Forms: Work/School Release Form(ED)
[2016-09-28 13:46] VITALS: BP 112/63
== END 2016-09-28 13:30 | disposition home or self-care (01) | DRG 779 ==
LOC: ED 09:35 → OB 21:45
PROVIDERS: ADMIT Obstetrics & Gynecology; ATTEND Obstetrics & Gynecology
DX: O02.1 Missed abortion (principal); O08.1 Delayed or excessive hemorrhage following ectopic and molar pregnancy; F17.210 Nicotine dependence, cigarettes, uncomplicated; Z3A.01 Less than 8 weeks gestation of pregnancy
CPT/HCPCS: 36415; 76801; 76817; 80048; 84702; 84703; 85025; 86850; 86900; 86901; 87210; 87591; 88305; 96361; 96374; 96375; 96376; J1885; J2270; J2405; J7030; J7120